=== PATIENT | male | born 1975 | race Two or more races ===

== ENCOUNTER 2018-04-22 20:31 | Emergency (ER) | payer SELFPAY ==
--- NOTE | 2018-04-22 20:33 | ER Report ---
History and Physical Time Seen By MD: 20:33 HPI/ROS CHIEF COMPLAINT: Cough, shortness of breath, chemical exposure, nausea, vomiting HISTORY OF PRESENT ILLNESS: Patient is a 43-year-old male here with complaints of the above. He reportedly inhaled a solution that contained bleach and [place] remover. Patient reports having an episode of emesis, cough, irritation to the throat, shortness of breath. Patient denies underlying lung pathology, smoking history. He is maintaining oxygen saturations of 94% on room air but does have intermittent cough. Patient is otherwise hemodynamically stable, afebrile at time of evaluation. REVIEW OF SYSTEMS: Constitutional: No fever, no chills. Eyes: No discharge. ENT: No sore throat. Cardiovascular: + chest discomfort, no palpitations. Respiratory: + cough, + shortness of breath. Gastrointestinal: No abdominal pain, + nausea and an episode of vomiting. Genitourinary: No hematuria. Musculoskeletal: No back pain. Skin: No rashes. Neurological: No headache. Allergies: Coded Allergies: No Known Drug Allergies (Unverified , 04/22/18) Constitutional Vital Sign - Last 24 Hours 04/22/18 04/22/18 04/22/18 04/22/18 20:36 20:38 20:46 21:04 Temp 98.4 Pulse 74 72 Resp 14 B/P (MAP) 127/92 (104) 124/87 (99) Pulse Ox 94 92 O2 Delivery Room Air Room Air 04/22/18 04/22/18 04/22/18 04/22/18 21:16 21:31 22:05 22:11 Pulse 78 99 77 Resp 20 Pulse Ox 91 95 O2 Delivery Room Air Room Air O2 Flow Rate 2.0 04/22/18 04/22/18 22:12 22:16 Pulse 95 Resp 20 Pulse Ox 96 O2 Delivery Nasal Cannula O2 Flow Rate 1.0 Physical Exam General Appearance: The patient is alert, has no immediate need for airway protection and no signs of toxicity. NAD Eyes: Pupils equal and round no pallor or injection. ENT, Mouth: Mucous membranes are moist. Respiratory: There are no retractions, lungs are clear to auscultation, + stuttering cough Cardiovascular: Regular rate and rhythm. Gastrointestinal: Abdomen is soft and non tender, no masses, bowel sounds normal. Neurological: No focal neuro deficits Skin: Warm and dry, no rashes. Musculoskeletal: Neck is supple non tender. Extremities are nontender, nonswollen and have full range of motion. DIFFERENTIAL DIAGNOSIS: After history and physical exam differential diagnosis was considered for shortness of breath including but not limited to pulmonary infectious process, COPD, asthma, pulmonary embolus and congestive heart failure, chemical exposure Medical Decision Making Data Points Result Diagram: 04/22/18204004/22/182040 Laboratory Hematology Test 04/22/18 20:41 Red Blood Count 5.52 M/uL (4.00-5.60) Mean Corpuscular Volume 89.2 fL (80.0-96.0) Mean Corpuscular Hemoglobin 31.5 pg (26.0-33.0) Mean Corpuscular Hemoglobin Concent 35.2 g/dL (32.0-36.0) Red Cell Distribution Width 13.0 % (11.5-14.5) Mean Platelet Volume 7.8 fL (7.2-11.1) Neutrophils (%) (Auto) 46.8 % (39.4-72.5) Lymphocytes (%) (Auto) 41.1 % (17.6-49.6) Monocytes (%) (Auto) 8.4 % (4.1-12.4) Eosinophils (%) (Auto) 2.7 % (0.4-6.7) Basophils (%) (Auto) 1.0 % (0.3-1.4) Nucleated RBC Relative Count (auto) 0.1 /100WBC Neutrophils # (Auto) 3.7 K/uL (2.0-7.4) Lymphocytes # (Auto) 3.3 K/uL (1.3-3.6) Monocytes # (Auto) 0.7 K/uL (0.3-1.0) Eosinophils # (Auto) 0.2 K/uL (0.0-0.5) Basophils # (Auto) 0.1 K/uL (0.0-0.1) Nucleated RBC Absolute Count (auto) 0.01 K/uL Sodium Level 139 mmol/L (137-145) Potassium Level 3.7 mmol/L (3.5-5.0) Chloride Level 103 mmol/L (98-107) Carbon Dioxide Level 26 mmol/L (22-30) Blood Urea Nitrogen 11 mg/dl (9-21) Creatinine 0.80 mg/dl (0.66-1.25) Glomerular Filtration Rate Calc > 60.0 Random Glucose 90 mg/dl (75-110) Calcium Level 9.4 mg/dl (8.4-10.2) Total Bilirubin 0.2 mg/dl (0.2-1.3) Aspartate Amino Transf (AST/SGOT) 40 U/L (0-35) Alanine Aminotransferase (ALT/SGPT) 56 U/L (0-56) Alkaline Phosphatase 83 U/L (0-126) Total Protein 8.3 g/dl (6.3-8.2) Albumin 4.5 g/dl (3.5-5.0) Chemistry Test 04/22/18 20:41 White Blood Count 8.0 k/uL (4.5-11.0) Red Blood Count 5.52 M/uL (4.00-5.60) Hemoglobin 17.4 g/dL (14.0-18.0) Hematocrit 49.3 % (42.0-52.0) Mean Corpuscular Volume 89.2 fL (80.0-96.0) Mean Corpuscular Hemoglobin 31.5 pg (26.0-33.0) Mean Corpuscular Hemoglobin Concent 35.2 g/dL (32.0-36.0) Red Cell Distribution Width 13.0 % (11.5-14.5) Platelet Count 312 K/uL (150-450) Mean Platelet Volume 7.8 fL (7.2-11.1) Neutrophils (%) (Auto) 46.8 % (39.4-72.5) Lymphocytes (%) (Auto) 41.1 % (17.6-49.6) Monocytes (%) (Auto) 8.4 % (4.1-12.4) Eosinophils (%) (Auto) 2.7 % (0.4-6.7) Basophils (%) (Auto) 1.0 % (0.3-1.4) Nucleated RBC Relative Count (auto) 0.1 /100WBC Neutrophils # (Auto) 3.7 K/uL (2.0-7.4) Lymphocytes # (Auto) 3.3 K/uL (1.3-3.6) Monocytes # (Auto) 0.7 K/uL (0.3-1.0) Eosinophils # (Auto) 0.2 K/uL (0.0-0.5) Basophils # (Auto) 0.1 K/uL (0.0-0.1) Nucleated RBC Absolute Count (auto) 0.01 K/uL Glomerular Filtration Rate Calc > 60.0 Calcium Level 9.4 mg/dl (8.4-10.2) Total Bilirubin 0.2 mg/dl (0.2-1.3) Aspartate Amino Transf (AST/SGOT) 40 U/L (0-35) Alanine Aminotransferase (ALT/SGPT) 56 U/L (0-56) Alkaline Phosphatase 83 U/L (0-126) Total Protein 8.3 g/dl (6.3-8.2) Albumin 4.5 g/dl (3.5-5.0) EKG/Imaging Imaging Location: [facility] - [place] Patient: Jayy Ann : 1975 Visit/Account:[id number] Date of Sevice: 04/22/2018 EXAMINATION: Chest 2 Views HISTORY: Respiratory distress COMPARISON: None. FINDINGS: Normal lung volumes. There is prominence of the perihilar interstitial markings bilaterally, with peribronchial thickening. No focal consolidation or pleural effusion. No pneumothorax. Normal cardiomediastinal silhouette. Visualized osseous structures appear intact. IMPRESSION: Peribronchial thickening may be compatible with bronchial inflammation or viral infection. No evidence of a focal pneumonia. Report Dictated By: J Carlos Pinzon MD at 04/22/2018 9:23 PM ED Course/Re-evaluation ED Course Patient is a 43-year-old male here with chemical exposure to a [place] remover and bleach combination causing difficulty breathing, likely chemical pneumonitis. Poison control was contacted who recommended nebulized solution administration. CBC, CMP are unremarkable. Chest x-ray was completed. Poison control recommended observation for several hours in case pulmonary edema developed. Chest x-ray showed mild inflammatory of bronchial changes likely secondary to chemical exposure. No effusions or edema were present. Patient was given nebulizer treatment with improvement in cough and dyspnea. Patient was stable at time of discharge. Labs unremarkable. Albuterol inhaler given for outpatient treatment Decision to Disposition Date: Apr 22, 2018 Decision to Disposition Time: 23:23 Depart Departure Latest Vital Signs Vital Signs Date Time Temp Pulse Resp B/P (MAP) Pulse Ox O2 Delivery O2 Flow Rate FiO2 04/22/18 22:16 95 20 04/22/18 22:12 96 Nasal Cannula 1.0 04/22/18 21:04 124/87 (99) 04/22/18 20:36 98.4 Impression: Primary Impression: Exposure to chemical inhalation Condition: Improved Disposition: HOME OR SELF-CARE Patient Instructions: Acute Cough (GEN) Additional Instructions: Please drink plenty of water. Please return immediately if you develop increase work of breathing, worsening cough, fevers, shortness breath, chest pains, difficulty swallowing, productive cough. Please follow-up with your family doctor in the next couple days for outpatient reevaluation and care. You may take 2 puffs of the albuterol inhaler every 4-6 hours as needed for shortness breath, wheezing. PATRICE SELF DO Apr 22, 2018 20:33
[2018-04-22] MEDS ORDERED: NS(*) 0.9% 1000 ML BAG 1,000 ML IV ONE (20:40)
[2018-04-22] MEDS ORDERED: ONDANSETRON 4 MG/2 ML VIAL IVP ONE ×2 (20:40→22:20)
[2018-04-22] MEDS ORDERED: LIDOCAINE 4% SOLN 50 ML BTL TP ONE (20:45)
[2018-04-22 20:49] LABS: PLATELET COUNT, AUTOMATED 312 K/uL (150-450)
[2018-04-22] MEDS ORDERED: SODIUM BICAR(* 8.4% 50 ML SYR 50 ML SYR IVP ONE (21:20)
[2018-04-22] MEDS ORDERED: NS 0.9% NEB 3 ML SOLN INH ONE (21:20)
--- NOTE | 2018-04-22 21:29 | RADIOLOGY IMAGING REPORT ---
FACILITY: [facility] - [place] PATIENT NAME: Jayy Ann : 1975 MR: [id number] V: [id number] EXAM DATE: ORDERING PHYSICIAN: PATRICE SELF TECHNOLOGIST: Location: [facility] - [place] Patient: Jayy Ann : 1975 Visit/Account:[id number] Date of Sevice: 04/22/2018 EXAMINATION: Chest 2 Views HISTORY: Respiratory distress COMPARISON: None. FINDINGS: Normal lung volumes. There is prominence of the perihilar interstitial markings bilaterally, with per ibronchial thickening. No focal consolidation or pleural effusion. No pneumothorax. Normal cardiomediastinal silhouette. Visualized osseous structures appear intact. IMPRESSION: Peribronchial thickening may be compatible with bronchial inflammation or viral infection. No eviden ce of a focal pneumonia. Report Dictated By: J Carlos Pinzon MD at 04/22/2018 9:23 PM Report E-Signed By: J Carlos Pinzon MD at 04/22/2018 9:25 PM WSN:[id number]
[2018-04-22] MEDS ORDERED: ALBUTEROL 2.5 MG/3 ML NEB NEB ONE (22:10)
[2018-04-22] MEDS ORDERED: ALBUTEROL 8 GM INHALER INH ONE (23:25)
[2018-04-22 23:30] VITALS: BP 118/80
== END 2018-04-22 23:41 | disposition home or self-care (01) ==
LOC: ER 20:31
DX: Z77.098 Contact with and (suspected) exposure to other hazardous, chiefly nonmedicinal, chemicals (principal)
CPT/HCPCS: 71046; 85025; 94640; 96361; 96374; 96376; 99284; A4218; J2405; J3535; J7030; J7613; 82040; 82247; 82310; 82374; 82435; 82565; 82947; 84075; 84132; 84155; 84295; 84450; 84460; 84520